=== PATIENT | male | born 1970 | race Caucasian/White ===

== ENCOUNTER 2017-04-04 15:21 | Inpatient (IN) | payer BC ==
[~2017-04-04] VITALS: Ht 175.3 cm; Wt 81.7 kg
[2017-04-04] MEDS ORDERED: DILTIAZEM HCL 5 MG/ML 5 ML VIAL ONE (15:36)
[2017-04-04] MEDS ORDERED: SODIUM CHLORIDE 0.9% 1000ML 1,000 ML IV STA (15:41)
[2017-04-04] MEDS ORDERED: DILTIAZEM BOLUS / DRIP IV STA ×2 (15:41→18:16)
[2017-04-04] MEDS ORDERED: SODIUM CHLORIDE 0.9% 1000ML 500 ML IV STA (15:41)
[2017-04-04 16:00] LABS: HEMATOCRIT 48.1 % (42-52); MEAN CELL VOLUME 87.8 fL (80-100); MEAN CORPUSCULAR HEMOGLOBIN 30.7 pg (25-34); MEAN CORPUSCULAR HGB CONC 34.9 g/dl (32-36); MEAN PLATELET VOLUME 10.9 fL (7.4-10.4); PLATELET COUNT 389 K/uL (130-400); RED BLOOD COUNT 5.48 M/uL (4.7-6.1); WHITE BLOOD COUNT 9.84 K/uL (4.8-10.8)
[2017-04-04] MEDS ORDERED: DILTIAZEM HCL INJ 125 MG in DEXTROSE 5% 100ML IV PRN ×2 (16:00→20:15)
[2017-04-04 16:10] LABS: ALT/SGPT 30 U/L (12-78); BLOOD UREA NITROGEN 14 mg/dl (7-18); BUN/CREATININE RATIO 12.5 (10-20); CALCIUM 9.1 mg/dl (8.5-10.1); CARBON DIOXIDE 30 mmol/L (21-32); CHLORIDE 106 mmol/L (98-107); GLUCOSE 101 mg/dl (70-99); PARTIAL THROMBOPLASTIN RATIO 1.1; POTASSIUM 3.6 mmol/L (3.5-5.1); PROTHROMBIN TIME (PATIENT) 10.7 SECONDS (9.0-12.0); SODIUM 143 mmol/L (136-145)
[2017-04-04 16:15] LABS: ALB/GLOB RATIO 1.3 (0.9-2); ALKALINE PHOSPHATASE 86 U/L (45-117); AST/SGOT 18 U/L (15-37)
--- NOTE | 2017-04-04 16:16 | DIAGNOSTIC IMAGING REPORT ---
CHEST ONE VIEW PORTABLE CLINICAL HISTORY: CHEST PAIN pain COMPARISON STUDY: No previous studies for comparison. FINDINGS: The bones soft tissues and hemidiaphragms are normal. The cardiomediastinal silhouette is normal. The lungs are clear. The pulmonary vasculature is normal. IMPRESSION: Negative chest. The above report was generated using voice recognition software. It may contain grammatical, syntax or spelling errors. Electronically signed by: Lokesh Cruz M.D. 04/04/2017 4:15 PM Dictated Date/Time: 04/04/2017 4:14 PM
[2017-04-04] MEDS ORDERED: ACETAMINOPHEN 500 MG TAB PO STA (16:29)
[2017-04-04] MEDS ORDERED: METOPROLOL TARTRATE 1 MG/ML VIAL IV STA ×3 (16:29→17:58)
[2017-04-04] MEDS ORDERED: SODIUM CHLORIDE 0.9% 500ML 500 ML IV STA (17:58)
[2017-04-04] MEDS ORDERED: MAGNESIUM HYDROXIDE SUSP 30 ML UDC PO PRN (18:15)
[2017-04-04] MEDS ORDERED: ONDANSETRON INJ 2 MG/ML 2 ML VIAL IV PRN (18:15)
[2017-04-04] MEDS ORDERED: ACETAMINOPHEN 325 MG TAB PO PRN (18:15)
[2017-04-04] MEDS ORDERED: POLYETHYLENE (MIRALAX) 17 GM PACK PO PRN (18:15)
[2017-04-04] MEDS ORDERED: ALUMINUM/MAGNESIUM/SIMETH (MAALOX MAX) 30 ML UDC PO PRN (18:15)
[2017-04-04] MEDS ORDERED: MoRPHine SULFATE 2 MG/ML CARP IV PRN (18:15)
[2017-04-04] MEDS ORDERED: KETOROLAC TROMETHAMINE 30 MG/ML VIAL IV STA (18:59)
--- NOTE | 2017-04-04 19:31 | History and Physical ---
History & Physical Date & Time of Service: Apr 04, 2017 at 19:11 Chief Complaint: Heart Arythmia Primary Care Physician: No Doctor, Assigned History of Present Illness Source: patient 46 y/o M Hx recurrent AF and past ablations. Pt states that he has had AF intermittently for > 20 yrs and follows with a computational geneticist in the [facility]. He was on route to [place] when he developed palpitations and recognized he was in AF. He arrived at the ER and AF with a rate of 200 was confirmed. The pt states that this too is not unusual and that his HR can approach 275 at times. He does not have any CP, SOB or lightheadedness. He occasionally has difficulty discerning when the AF occurs. The pt responded to Cardizem and Metoprolol provided in the ER but remains in AF with a rate of 100-120 on admission. Past Medical/Surgical History History of AF only - previous ablations and cardioversion - follows with Dr. Davis at [facility] (now [facility]). Family History No pertinent family history Mother with history of TIA - both parents currently alive and well Social History Occasional ETOH - works in [employer] Smoking Status: Never Smoker Alcohol Use: occasionally Allergies Coded Allergies: No Known Allergies (Unverified , 04/04/17) Home Medications No Active Prescriptions or Reported Meds Review of Systems Constitutional: No fever, No chills, No sweats Eyes: No worsening of vision ENT: No hearing loss, No nasal symptoms Respiratory: No cough, No sputum, No wheezing, No shortness of breath Cardiovascular: + palpitations, No chest pain, No orthopnea, No PND Abdomen: No pain, No nausea, No vomiting Musculoskeletal: No joint pain Genitourinary - Male: No hematuria, No dysuria Neurologic: No memory loss, No paralysis, No weakness Psychiatric: No depression symptoms Endocrine: No fatigue Hematologic / Lymphatic: No abnormal bleeding/bruising Integumentary: No rash Allergic / Immunologic: No environmental allergies Physical Exam Vital Signs Date Time Temp Pulse Resp B/P (MAP) Pulse Ox O2 Delivery O2 Flow Rate FiO2 04/04/17 17:07 122 104/67 04/04/17 16:56 93 12 106/63 99 04/04/17 16:51 95 9 98 04/04/17 16:50 127/84 04/04/17 16:46 97 3 115/66 98 04/04/17 16:41 114 10 98 04/04/17 16:40 102/73 04/04/17 16:36 127 6 97 04/04/17 16:36 126 109/61 04/04/17 16:35 109/61 04/04/17 16:31 116 7 99 04/04/17 16:30 104/78 04/04/17 16:26 125 7 97 04/04/17 16:25 113/60 04/04/17 16:22 91/68 04/04/17 16:21 102 5 /87 97 04/04/17 16:16 117 3 97/71 97 04/04/17 16:11 105 10 121/67 98 04/04/17 16:06 95 12 121/81 97 04/04/17 16:01 101 12 100/73 98 04/04/17 16:00 97 Room Air 04/04/17 15:56 119 4 99 04/04/17 15:56 125 04/04/17 15:55 110/74 04/04/17 15:54 107/75 04/04/17 15:51 103 2 137/108 97 04/04/17 15:49 134/79 04/04/17 15:46 82 11 120/79 98 04/04/17 15:43 110/80 04/04/17 15:41 205 18 04/04/17 15:37 169 04/04/17 15:36 195 18 04/04/17 15:27 98 Room Air 04/04/17 15:25 36.4 63 20 119/77 98 Room Air General Appearance: WD/WN, no apparent distress Head: normocephalic Eyes: normal inspection ENT: normal ENT inspection, pharynx normal Neck: supple, no JVD Respiratory/Chest: chest non-tender, lungs clear Cardiovascular: no edema, no gallop, no JVD, + tachycardia, + irregularly irregular Abdomen/GI: normal bowel sounds, non tender, soft Back: normal inspection, no CVA tenderness, no muscle spasm Extremities/Musculoskelatal: normal inspection, no calf tenderness, normal capillary refill, no pedal edema, normal range of motion 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, no motor/sensory deficits, alert, normal mood/affect, normal reflexes, oriented x 3 Skin: normal color, warm/dry Diagnostics Laboratory Results Results Past 24 Hours Test 04/04/17 15:40 Range/Units White Blood Count 9.84 4.8-10.8 K/uL Red Blood Count 5.48 4.7-6.1 M/uL Hemoglobin 16.8 14.0-18.0 g/dL Hematocrit 48.1 42-52 % Mean Corpuscular Volume 87.8 80-100 fL Mean Corpuscular Hemoglobin 30.7 25-34 pg Mean Corpuscular Hemoglobin Concent 34.9 32-36 g/dl RDW Standard Deviation 41.3 36.4-46.3 fL RDW Coefficient of Variation 12.9 11.5-14.5 % Platelet Count 389 130-400 K/uL Mean Platelet Volume 10.9 7.4-10.4 fL Prothrombin Time 10.7 9.0-12.0 SECONDS Prothromb Time International Ratio 1.0 0.9-1.1 Activated Partial Thromboplast Time 27.5 21.0-31.0 SECONDS Partial Thromboplastin Ratio 1.1 Sodium Level 143 136-145 mmol/L Potassium Level 3.6 3.5-5.1 mmol/L Chloride Level 106 98-107 mmol/L Carbon Dioxide Level 30 21-32 mmol/L Anion Gap 7.0 3-11 mmol/L Blood Urea Nitrogen 14 7-18 mg/dl Creatinine 1.10 0.60-1.40 mg/dl Est Creatinine Clear Calc Drug Dose 82.2 ml/min Estimated GFR () 91.5 Estimated GFR (Non- 79.0 BUN/Creatinine Ratio 12.5 10-20 Random Glucose 101 70-99 mg/dl Calcium Level 9.1 8.5-10.1 mg/dl Total Bilirubin 0.4 0.2-1 mg/dl Aspartate Amino Transf (AST/SGOT) 18 15-37 U/L Alanine Aminotransferase (ALT/SGPT) 30 12-78 U/L Alkaline Phosphatase 86 45-117 U/L Troponin I < 0.015 0-0.045 ng/ml Total Protein 7.8 6.4-8.2 gm/dl Albumin 4.4 3.4-5.0 gm/dl Globulin 3.4 2.5-4.0 gm/dl Albumin/Globulin Ratio 1.3 0.9-2 EKG AF - RVR Impression Assessment and Plan 46 y/o M Hx recurrent AF and past ablations. Pt states that he has had AF intermittently for > 20 yrs. He was on route to [place] when he developed palpitations and recognized he was in AF. He arrived at the ER and AF with a rate of 200 was confirmed. The pt responded to Cardizem and Metoprolol provided in the ER but remains in AF with a rate of 100-120 on admission. Pt has been placed on a cardizem drip, full dose Lovenox and will be transferred to telemetry. He has requested DC if he reverts to a sinus rhythm. We will obtain a cardiology consult if he remains in AF overnight as he may require cardioversion. He has undergone full workups and follows with a computational geneticist in the [place] so we should likely discuss this with his MD AM prior to subjecting him to additional testing. Full code - Full dose Lovenox - toal time for this admit including review of labs, ekg - discussion with pt and ER attending - 35 min Level of Care Telemetry Resuscitation Status FULL RESUSCITATION VTE Prophylaxis VTE Risk Assessment Done? Y/N: Yes Risk Level: Very Low Given or contraindicated: Enoxaparin (Lovenox)SQ
[2017-04-04 20:00] VITALS: BP 104/70; PULSE 98; TEMP 36.3; O2SAT 97; Ht 175.3 cm; Wt 81.7 kg
[2017-04-04] MEDS ORDERED: ENOXAPARIN 80 MG/0.8 ML SYR SQ SCH (20:00)
--- NOTE | 2017-04-04 20:24 | EMERGENCY ROOM VISIT NOTE ---
History Report prepared by Clement: Madisyn Garcia Under the Supervision of: Dr. Manuel Elias M.D. First contact with patient: 15:34 Chief Complaint: CARDIAC ASSESSMENT Stated Complaint: HEART ARYTHMIA Nursing Triage Summary: "It feels jumpy in my chest. I was driving and I saw your hospital and pulled in. I figured I could get cardizem and get on my way" per pt. Hx of ablations with hx of arrhythmia. Denies chest pain. History of Present Illness The patient is a 46 year old male who presents to the Emergency Room for a cardiac assessment. The patient states that he is traveling for work. He states that he has a history of atrial fibrillation. He states that while driving today an hour ago he started to experience palpitations. He notes that he has had these episodes and usually can get them to go away after an hour of lying down. The patient complains of being clammy, lightheaded, and fatigued. He notes that he was on Cardizem, but was taken off of it after his second cardiac ablation 7 months ago. He reports that he was on Eliquis as well, but stopped taking it five months ago. The patient notes that his blood pressure tends to drop extremely low when these episodes occur. He states that these episodes come on from stress. The patient notes that he has been stressed due to an issue with his eyes that has required 2 surgeries with another one scheduled. The patient denies ever having a heart attack, shortness of breath, recent new medications, and the use of alcohol heavily recently. Source of History: patient Onset: an hour ago Position: other (global) Quality: other (global) Timing: other (episode) Associated Symptoms: + fatigue, No SOB Note: The patient complains of lightheadedness and clamminess. The patient denies ever having a heart attack, new medication, and the use of alcohol heavily recently. Review of Systems See HPI for pertinent positives & negatives. A total of 10 systems reviewed and were otherwise negative. Past Medical & Surgical Medical Problems: (1) Atrial fibrillation (2) Atrial fibrillation with rapid ventricular response Family History No pertinent family history Social History Smoking Status: Never Smoker Alcohol Use: occasionally Marital Status: Housing Status: lives with family Occupation Status: employed Current/Historical Medications No Active Prescriptions or Reported Meds Allergies Coded Allergies: No Known Allergies (Unverified , 04/04/17) Physical Exam Vital Signs Date Time Temp Pulse Resp B/P (MAP) Pulse Ox O2 Delivery O2 Flow Rate FiO2 04/04/17 18:16 96 96 04/04/17 18:11 95 96 04/04/17 18:10 94/72 04/04/17 18:06 96 97 04/04/17 18:04 102/65 04/04/17 18:01 99 10 98 04/04/17 18:00 107/69 04/04/17 17:58 120 115/73 04/04/17 17:56 93 14 98 04/04/17 17:51 95 97 04/04/17 17:50 111/68 04/04/17 17:40 122/58 04/04/17 17:36 93 13 98 04/04/17 17:35 129/74 04/04/17 17:31 104 14 98 04/04/17 17:30 102/77 04/04/17 17:26 93 20 98 04/04/17 17:25 104/67 04/04/17 17:21 110 10 98 04/04/17 17:20 100/71 04/04/17 17:16 118 95 04/04/17 17:11 104 111/74 97 04/04/17 17:07 122 104/67 04/04/17 17:06 100 4 144/91 97 04/04/17 17:01 76 9 99 04/04/17 16:56 93 12 106/63 99 04/04/17 16:51 95 9 98 04/04/17 16:50 127/84 04/04/17 16:46 97 115/66 98 04/04/17 16:41 114 10 98 04/04/17 16:40 102/73 04/04/17 16:36 127 6 97 04/04/17 16:36 126 109/61 04/04/17 16:35 109/61 04/04/17 16:31 116 7 99 04/04/17 16:30 104/78 04/04/17 16:26 125 7 97 04/04/17 16:25 113/60 04/04/17 16:22 91/68 04/04/17 16:21 102 5 /87 97 04/04/17 16:16 117 13 97/71 97 04/04/17 16:11 105 10 121/67 98 04/04/17 16:06 95 12 121/81 97 04/04/17 16:01 101 12 100/73 98 04/04/17 16:00 97 Room Air 04/04/17 15:56 119 99 04/04/17 15:56 125 04/04/17 15:55 110/74 04/04/17 15:54 107/75 04/04/17 15:49 134/79 04/04/17 15:46 82 11 120/79 98 04/04/17 15:43 110/80 04/04/17 15:41 205 18 04/04/17 15:37 169 04/04/17 15:36 195 18 04/04/17 15:27 98 Room Air 04/04/17 15:25 36.4 63 20 119/77 98 Room Air Physical Exam GENERAL: Patient is in no acute distress. HEENT: No acute trauma, normocephalic atraumatic, mucous membranes moist, no nasal congestion, no scleral icterus. NECK: No stridor, no adenopathy, no meningismus, trachea is midline. LUNGS: Clear to auscultation bilaterally, no wheeze, no rhonchi, breath sounds equal. HEART: Tachycardic with irregular rhythm. No murmurs. ABDOMEN: Soft, nontender, bowel sounds positive, no hernias, no peritonitis. EXTREMITIES: No cyanosis or edema, full range of motion of all the joints without pain or difficulty, no signs for acute trauma. NEUROLOGIC: Oriented x 3, no acute motor or sensory deficits, no focal weakness. SKIN: No rash, no jaundice, no diaphoresis. Medical Decision & Procedures ER Provider Diagnostic Interpretation: Radiology results as stated below per my review and radiologist interpretation: CHEST ONE VIEW PORTABLE CLINICAL HISTORY: CHEST PAIN pain COMPARISON STUDY: No previous studies for comparison. FINDINGS: The bones soft tissues and hemidiaphragms are normal. The cardiomediastinal silhouette is normal. The lungs are clear. The pulmonary vasculature is normal. IMPRESSION: Negative chest. The above report was generated using voice recognition software. It may contain grammatical, syntax or spelling errors. Electronically signed by: Lokesh Cruz M.D. 04/04/2017 4:15 PM Dictated Date/Time: 04/04/2017 4:14 PM Laboratory Results 04/04/17 15:40 04/04/17 15:40 Test 04/04/17 15:40 Red Blood Count 5.48 M/uL (4.7-6.1) Mean Corpuscular Volume 87.8 fL (80-100) Mean Corpuscular Hemoglobin 30.7 pg (25-34) Mean Corpuscular Hemoglobin Concent 34.9 g/dl (32-36) RDW Standard Deviation 41.3 fL (36.4-46.3) RDW Coefficient of Variation 12.9 % (11.5-14.5) Mean Platelet Volume 10.9 fL (7.4-10.4) Prothrombin Time 10.7 SECONDS (9.0-12.0) Prothromb Time International Ratio 1.0 (0.9-1.1) Activated Partial Thromboplast Time 27.5 SECONDS (21.0-31.0) Partial Thromboplastin Ratio 1.1 Anion Gap 7.0 mmol/L (3-11) Est Creatinine Clear Calc Drug Dose 82.2 ml/min Estimated GFR () 91.5 Estimated GFR (Non- 79.0 BUN/Creatinine Ratio 12.5 (10-20) Calcium Level 9.1 mg/dl (8.5-10.1) Total Bilirubin 0.4 mg/dl (0.2-1) Aspartate Amino Transf (AST/SGOT) 18 U/L (15-37) Alanine Aminotransferase (ALT/SGPT) 30 U/L (12-78) Alkaline Phosphatase 86 U/L (45-117) Troponin I < 0.015 ng/ml (0-0.045) Total Protein 7.8 gm/dl (6.4-8.2) Albumin 4.4 gm/dl (3.4-5.0) Globulin 3.4 gm/dl (2.5-4.0) Albumin/Globulin Ratio 1.3 (0.9-2) Laboratory results reviewed by me. Medications Administered Medications (Trade) Dose Ordered Sig/[place] Route Start Time Stop Time Status Last Admin Dose Admin Diltiazem HCl (Cardizem Inj) 25 mg STK-MED ONCE .ROUTE 04/04/17 15:36 04/04/17 15:37 DC 04/04/17 15:36 10 MG Sodium Chloride 500 ml @ 999 mls/hr Q31M STAT IV 04/04/17 15:41 04/04/17 16:11 DC 04/04/17 15:41 999 MLS/HR Sodium Chloride 1,000 ml @ 200 mls/hr Q5H STAT IV 04/04/17 15:41 04/04/17 20:03 DC 04/04/17 15:41 200 MLS/HR Diltiazem HCl 125 mg/Dextrose 125 ml @ 5 mls/hr Q24H PRN IV 04/04/17 16:00 04/04/17 20:10 DC 04/04/17 15:56 5 MLS/HR Acetaminophen (Tylenol Tab) 1,000 mg NOW STAT PO 04/04/17 16:29 04/04/17 16:31 DC 04/04/17 16:35 1,000 MG Metoprolol Tartrate (Lopressor Iv) 2.5 mg NOW STAT IV 04/04/17 16:29 04/04/17 16:31 DC 04/04/17 16:36 2.5 MG Metoprolol Tartrate (Lopressor Iv) 2.5 mg NOW STAT IV 04/04/17 17:07 04/04/17 17:09 DC 04/04/17 17:07 2.5 MG Sodium Chloride 500 ml @ 999 mls/hr Q31M STAT IV 04/04/17 17:58 04/04/17 18:28 DC 04/04/17 17:58 999 MLS/HR Metoprolol Tartrate (Lopressor Iv) 2.5 mg NOW STAT IV 04/04/17 17:58 04/04/17 17:59 DC 04/04/17 17:58 2.5 MG ECG Indication: tachycardia Rate (beats per minute): 199 Rhythm: atrial fibrillation Findings: no acute ischemic change, no ectopy, other (mild diffuse ST changes consistent with rapid rate) ED Course 1536: The patient was evaluated in room A11A. A complete history and physical exam was performed. 1541: Ordered Diltiazem HCl 1 ea IV, NSS 1000 ml @ 200 mls/hr IV, NSS 500 ml @ 999 mls/hr IV. 1600: Ordered Dilitiazem HCl 125 mg/Dextrose 125 ml @ 5 mls/hr Protocol PRN IV titration. 1629: Ordered Lopressor Iv 2.5 mg IV, Tylenol Tab 1000 mg PO. 1640: I reevaluated the patient and he is still in atrial fibrillation. 1651: Discussed the patient's case with Dr. Marvin. The patient will be evaluated for further management. 1707: Ordered Lopressor Iv 2.5 mg IV. 1736: I reevaluated the patient and he is still in atrial fibrillation. His heart rate is down. The patient wants to try to walk around because in the past he has been able to break it this way. 1758: Ordered Lopressor Iv 2.5 mg IV, NSS 500 ml @ 999 mls/hr IV. Medical Decision Differential diagnoses include atrial fibrillation, atrial flutter, SVT, electrolyte imbalance, dehydration, anemia, MD. There is no leukocytosis or concerning anemia. No significant electrolyte abnormality, kidney failure or hepatitis. EKG shows a very rapid atrial fibrillation, no acute ischemia or ectopy. Cardiac enzyme testing times one is not consistent with acute cardiac injury. Chest film does not show CHF, pneumonia or cardiomegaly. There is no coagulopathy. The patient was aggressively managed given the fast heart rate. He received IV saline. Several boluses were given. He received a bolus of IV diltiazem and then was placed on a diltiazem drip. He received IV Lopressor. 3 separate IV doses were given. With the above regimen, the heart rate is now in the 90s to low 100s and the blood pressure is still adequate. The patient was given oral Tylenol for a headache, he received IV Toradol for a headache. The patient is still in atrial fibrillation but the rate is better controlled. He is stable. I did speak with case management, I talked at length with the patient. Admission/observation is warranted. The on-call hospitalist was consulted. Impression Primary Impression: Atrial fibrillation with rapid ventricular response Critical Care I have personally spent greater than 30 minutes of critical care time in the direct management of this patient. This includes bedside care, interpretation of diagnostic studies and testing, discussion with consultants, the patient, and family members, and other required patient management activities. This 30 minutes is in excess of all separately billable procedures. Scribe Attestation The scribe's documentation has been prepared under my direction and personally reviewed by me in its entirety. I confirm that the note above accurately reflects all work, treatment, procedures, and medical decision making performed by me. Departure Information Dispostion Being Evaluated By Hospitalist Prescriptions No Active Prescriptions or Reported Meds Referrals No Doctor, Assigned (PCP) Patient Instructions My [facility]
[2017-04-04 23:04] VITALS: BP 89/55; PULSE 85; TEMP 36.5; O2SAT 97
[2017-04-05 03:00] VITALS: BP 91/56; PULSE 67; TEMP 36.4; O2SAT 97
[2017-04-05 07:13] VITALS: BP 110/69; PULSE 66; TEMP 36.8; O2SAT 99
[2017-04-05] MEDS ORDERED: DILT1TAB50 PO (08:57)
--- NOTE | 2017-04-05 09:02 | Discharge Instructions ---
Discharge Instructions Date of Service Apr 05, 2017. Admission Reason for Admission: Atrial Fibrillation With Rvr Discharge Discharge Diagnosis / Problem: Rapid atrial fibrillation Discharge Goals Goal(s): Improve disease control, Therapeutic intervention Activity Recommendations Activity Limitations: resume your previous activity Lifting Limitations: none Exercise/Sports Limitations: as tolerated Shower/Bathe: no limitations Driving or Machine Use: no limitations . Instructions / Follow-Up Instructions / Follow-Up You were admitted with rapid atrial fibrillation and given medication through your IV to lower your heart rate. You spontaneously converted to a normal sinus rhythm and were stable for discharge. Please follow up with your web search evaluator within 2 weeks after discharge. Current Hospital Diet Patient's current hospital diet: AHA Diet (Heart Healthy) Discharge Diet Recommended Diet: AHA Diet (Heart Healthy) Pending Studies Studies pending at discharge: no Laboratory Results Last 24 Hours Test 04/04/17 15:40 White Blood Count 9.84 K/uL Red Blood Count 5.48 M/uL Hemoglobin 16.8 g/dL Hematocrit 48.1 % Mean Corpuscular Volume 87.8 fL Mean Corpuscular Hemoglobin 30.7 pg Mean Corpuscular Hemoglobin Concent 34.9 g/dl RDW Standard Deviation 41.3 fL RDW Coefficient of Variation 12.9 % Platelet Count 389 K/uL Mean Platelet Volume 10.9 fL Prothrombin Time 10.7 SECONDS Prothromb Time International Ratio 1.0 Activated Partial Thromboplast Time 27.5 SECONDS Partial Thromboplastin Ratio 1.1 Sodium Level 143 mmol/L Potassium Level 3.6 mmol/L Chloride Level 106 mmol/L Carbon Dioxide Level 30 mmol/L Anion Gap 7.0 mmol/L Blood Urea Nitrogen 14 mg/dl Creatinine 1.10 mg/dl Est Creatinine Clear Calc Drug Dose 82.2 ml/min Estimated GFR () 91.5 Estimated GFR (Non- 79.0 BUN/Creatinine Ratio 12.5 Random Glucose 101 mg/dl Calcium Level 9.1 mg/dl Total Bilirubin 0.4 mg/dl Aspartate Amino Transf (AST/SGOT) 18 U/L Alanine Aminotransferase (ALT/SGPT) 30 U/L Alkaline Phosphatase 86 U/L Troponin I < 0.015 ng/ml Total Protein 7.8 gm/dl Albumin 4.4 gm/dl Globulin 3.4 gm/dl Albumin/Globulin Ratio 1.3 Medical Emergencies . Who to Call and When: Medical Emergencies: If at any time you feel your situation is an emergency, please call 911 immediately. . Non-Emergent Contact Non-Emergency issues call your: Primary Care Provider, Wine Consultant . . "Provider Documentation" section prepared by Sonya Alexander. . VTE Core Measure Inpt VTE Proph given/why not?: Enoxaparin (Lovenox)SQ
[2017-04-05 09:07] VITALS: BP 110/69; PULSE 66; TEMP 36.8; O2SAT 99
--- NOTE | 2017-04-05 11:19 | CARDIOLOGY CONSULTATION ---
DATE OF CONSULTATION: 04/05/2017 PERTINENT HISTORY: Mr. Richardson is a 46-year-old white male admitted last evening with atrial fibrillation in the rapid ventricular response. This consultation was ordered to assist in his cardiac management. The patient was in his usual state of health until the day of presentation. While driving from the [facility] to [place], the patient began to notice palpitations and a rapid irregular pulse. He claims that he "could see his heart beating through his shirt." He became concerned and therefore, presented to our Emergency Room. He was given intravenous calcium channel blockers and beta blockers with some improvement of his ventricular response, however, it was still rapid and therefore hospitalization was recommended. Unfortunately, the patient converted to sinus rhythm at approximately 2:00 a.m. today. The patient has a longstanding history of paroxysmal atrial fibrillation. He claims that his first episode of a supraventricular tachycardia occurred while he was in his teenage years. The patient's paroxysms became progressive and he underwent a radiofrequency ablation in [facility] in August. He was on Eliquis for 2 months leading up to the procedure, and 2 months following the procedure. Although the patient has had occasional short-lived palpitations, and this episode represents his first episode of atrial fibrillation since his ablation in August. He currently follows with Dr. Davis in the [facility]. Currently, the patient is resting comfortably at the bedside and is without complaints. He is anxious for hospital discharge. PAST MEDICAL AND SURGICAL HISTORY: 1. Paroxysmal atrial fibrillation -- see above. 2. Radiofrequency ablations -- August 2016 -- [place], [place]. 3. Left bicep tendon repair. 4. Hemorrhoidectomy. 5. History of late presentation of Lyme disease. MEDICATIONS: 1. Lovenox 80 mg subQ b.i.d. 2. Diltiazem drip -- discontinued at the time of conversion to sinus rhythm. ALLERGIES: None. SOCIAL HISTORY: The patient is and lives with his in the [facility]. Works for [employer] in [employer]. Does not use tobacco. Alcohol use is occasional. FAMILY HISTORY: Father is in his 70s and has a history of malignant melanoma. Mother is in her 70s and was just diagnosed with leukemia. He has a brother who is healthy. REVIEW OF SYSTEMS: A 10-point review of systems is negative except for that described above. PHYSICAL EXAMINATION: GENERAL: This is a well-developed, well-nourished white male in no acute distress. VITAL SIGNS: Blood pressure is 110/70 with a regular pulse of 66. Respiratory rate is 18. The patient is afebrile at 36.8 degrees Celsius. Saturations 99% on room air. HEENT: Negative. NECK: Supple with full carotid upstrokes. There are no carotid bruits. Jugular venous pressure is flat at 90 degrees. There is no thyromegaly. CARDIOVASCULAR: Reveals a regular rhythm with normal S1 and S2. No S3, no S4, or murmurs are noted. LUNGS: Clear without rales, rhonchi, or wheezes. ABDOMEN: Soft, nontender without bruits. EXTREMITIES: Reveal intact radial artery pulses bilaterally. There is no peripheral edema. LABORATORY AND IMAGING DATA: CBC notes hemoglobin of 16.8, hematocrit 48.1, white count 9.8, and platelet count 389,000. Electrolytes note sodium of 143, potassium 3.6, chloride 106, bicarb 37, BUN 14, creatinine 1.1, glucose 101. Troponin I level is undetectable at less than 0.015. EKG notes atrial fibrillation with a rapid ventricular response. There is a nonspecific ST abnormality. cardiac monitor noted conversion from atrial fibrillation to sinus rhythm at approximately 2 a.m. Chest x-ray shows no acute disease. IMPRESSION: Mr. Richardson carries a history of paroxysmal atrial fibrillation. He did have an episode yesterday which had a rapid ventricular response. Fortunately, he is converted to sinus rhythm. He does have diltiazem that he uses p.r.n. He is not on long-term anticoagulation therapy as his CHADs score is 0. PLAN: 1. Continued use of diltiazem p.r.n. for atrial fibrillation. 2. No need for long-term anticoagulation at this time. 3. 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 4. Stable for hospital discharge from the cardiac perspective.
--- NOTE | 2017-04-22 23:21 | Discharge Summary ---
Discharge Summary Date of Service Apr 05, 2017. Discharge Summary Admission Date: Apr 04, 2017 at 18:16 Discharge Date: Apr 05, 2017 Discharge Disposition: Home Principal Diagnosis: Rapid atrial fibrillation Problems/Secondary Diagnoses: Hypotension Headache syndrome Diplopia-chronic Procedures: Chest xray-negative Consultations: Cardiology Medication Reconciliation New Medications: Diltiazem HCl Coated Beads (Diltiazem HCl ER) 240 Mg Tab 240 MG PO DAILY PRN for rapid heartbeat/palpitations, #5 TAB Discharge Exam Pt converted to NSR at 0150 in the AM and pt was doing very well in the AM after admission. He denies CP or SOB, no abd pain, no concerns at all. States he had an ablation in Aug 2016 and follows routinely with Primary Nick Setter and his EP MD. He has diltiazem for prn use at home but did not bring it with him on this trip. He has been dealing with his A-fib for over 20 years and says he usually cannot even feel it until his rate reaches 200. Review of Systems: Constitutional: No fever, No chills Eyes: + diplopia (chronic and undergoing serial EOM surgeries to repair) ENT: No problem reported Respiratory: No shortness of breath Cardiovascular: No chest pain, No palpitations Abdomen: No pain Musculoskeletal: No problem reported Genitourinary - Male: No problem reported Neurologic: + problem reported (gets headaches and photophobia over the last year since he was on a high dose multi-drug regimen for Lyme disease last year) Psychiatric: No substance abuse, No problem reported Endocrine: No problem reported Hematologic / Lymphatic: No problem reported Integumentary: No problem reported Physical Exam: General Appearance: WD/WN, no apparent distress Eyes: normal inspection, sclerae normal ENT: hearing grossly normal Neck: trachea midline Respiratory/Chest: lungs clear, normal breath sounds, no respiratory distress, no accessory muscle use Cardiovascular: regular rate, rhythm, no edema, no gallop, no JVD, no murmur , normal peripheral pulses Abdomen / GI: normal bowel sounds, non tender, soft, no organomegaly, no pulsatile mass Extremities: normal inspection, no calf tenderness, normal capillary refill , no pedal edema Neurologic/Psychiatric: alert, normal mood/affect, oriented x 3 Skin: normal color, warm/dry, no rash Hospital Course This patient is a 46 y/o male with a h/o recurrent atrial fibrillation and past ablations. Pt states that he has had AF intermittently for > 20 yrs. He was on route to [place] when he developed palpitations and recognized he was in AF. He arrived at the ER and AF with a rate of 200 was confirmed. The pt responded to Cardizem and Metoprolol provided in the ER but remained in AF with a rate of 100-120 on admission. He was placed on a cardizem drip and given full dose Lovenox. He was admitted to the telemetry unit for further monitoring. Cardiology consultation was obtained. He converted spontaneously to a NSR in the middle of the night of admission. He was doing very well, had no further symptoms, and was anxious to be discharged in the morning. His CHADS2 score was zero and he does not require anticoagulation. He was provided with a prescription for diltiazem po to take on a prn basis while he completed his travels. Total Time Spent: Greater than 30 minutes This includes examination of the patient, discharge planning, medication reconciliation, and communication with other providers. Discharge Instructions Please refer to the electronic Patient Visit Report (Discharge Instructions) for additional information. Follow-Up Cardiology within 1-2 weeks PCP within 1-2 weeks
== END 2017-04-05 09:36 | disposition home or self-care (01) | DRG 310 ==
LOC: C.EDB 15:22 → C.2T 18:16 → ENRESERV 18:32
PROVIDERS: ADMIT Internal Medicine; ATTEND Internal Medicine
DX: I48.0 Paroxysmal atrial fibrillation (principal)